=== PATIENT | female | born 1975 ===

== ENCOUNTER 2021-04-01 12:58 | Day surgery (SDC) | payer MEDICARE ==
[~2021-04-01] VITALS: Ht 152.4 cm; Wt 93.8 kg
[2021-04-01] MEDS ORDERED: CYMBALTA 60MG60 MG PO (13:16)
[2021-04-01] MEDS ORDERED: ATARAX50 MG PO (13:17)
[2021-04-01] MEDS ORDERED: CLARITIN 1010 MG/TAB PO (13:18)
[2021-04-01] MEDS ORDERED: LATUDA80 MG PO (13:18)
[2021-04-01] MEDS ORDERED: COZAAR 25MG25 MG/TAB PO (13:18)
[2021-04-01] MEDS ORDERED: MINIPRESS2 MG PO (13:19)
[2021-04-01] MEDS ORDERED: MULTI VITAMINS1 TAB PO (13:19)
[2021-04-01] MEDS ORDERED: ZOLOFT 50MG50 MG PO (13:20)
[2021-04-01] MEDS ORDERED: LYRICA200 MG PO (13:20)
[2021-04-01] MEDS ORDERED: RESTORIL30 MG PO (13:21)
[2021-04-01] MEDS ORDERED: VITAMIN D 50,1.25 MG PO (13:21)
[2021-04-01] MEDS ORDERED: B-12 500 MCG PO (13:21)
[2021-04-01 13:53] VITALS: BP 113/84; PULSE 89; TEMP 99.4
[2021-04-01 14:35] VITALS: BP 118/81; PULSE 83; TEMP 96.9
--- NOTE | 2021-04-01 14:35 | NUR ---
PATIENT TRANSPORTED PER CART FROM ENDO SUITE TO BAY 3 ACCOMPANIED BY ENDO RN. PATIENT TALKS WITH STAFF. PATIENT AMBULATES FROM CART TO CHAIR WITH 2 ASSIST. STEADY GAIT. MONITORS APPLIED. PATIENT GIVEN WARM BLANKET. FAMILY IN ROOM. PATIENT TALKS WTH FAMILY. VSS. VERBAL REPORT RECEIVED. 1440 PATIENT GIVEN APPLE JUICE AND PUDDING.
[2021-04-01 14:45] VITALS: BP 129/86; PULSE 85
--- NOTE | 2021-04-01 14:45 | NUR ---
VSS ON ROOM AIR. PATIENT TOLERATES DRINK AND FOOD WITHOUT PROBLEMS. TALKS WITH FAMILY.
[2021-04-01 15:00] VITALS: BP 119/81; PULSE 86
--- NOTE | 2021-04-01 15:05 | NUR ---
VSS ON ROOM AIR. PATIENT TALKING WITH FAMILY. DR MADDOX IN ROOM AND SPEAKS WITH PATIENT. PATIENT DENIES C/O'S. PATIENT STATES READY TO GO HOME. 1505 IV DC'D WITH CATHETER TIP INTACT. PRESSURE AND BANDAGE APPLIED. 1510 DISCHARGE INSTRUCTIONS GIVEN VERBAL AND DISCHARGE PACKET PROVIDED. QUESTIONS ANSWERED AND PATIENT VOICED UNDERSTANDING. PATIENT CHANGES INTO STREET CLOTHES. 1515 PATIENT DISCHARGED PER WHEEL CHAIR ACCOMPANIED BY ENDO STAFF TO PRIVATE VECHILE DRIVEN BY FAMILY.
== END 2021-04-01 15:15 | disposition home or self-care (01) ==
LOC: SDCO 12:58
DX: R19.5 Other fecal abnormalities (principal); K64.1 Second degree hemorrhoids; K21.9 Gastro-esophageal reflux disease without esophagitis; I10 Essential (primary) hypertension; J30.9 Allergic rhinitis, unspecified; G47.33 Obstructive sleep apnea (adult) (pediatric); G89.29 Other chronic pain; M54.9 Dorsalgia, unspecified; M79.7 Fibromyalgia; F32.A Depression, unspecified; Z99.89 Dependence on other enabling machines and devices; Z79.899 Other long term (current) drug therapy; Z80.0 Family history of malignant neoplasm of digestive organs
CPT/HCPCS: J2704; J7030